=== PATIENT | male | born 1975 | race African-American/Black ===

== ENCOUNTER 2023-12-05 18:43 | Inpatient (IN) | payer OTHER ==
[2023-12-05 19:50] LABS: Specific Gravity 1.019 (1.005-1.030); Sqamous Epithelial None Seen /HPF (None Seen); Urine Bacteria None Seen /HPF (<20); Urine Bilirubin NEGATIVE (Negative); Urine Blood Negative (Negative); Urine Clarity Turbid (Clear); Urine Color Light-Yellow (Yellow); Urine Crystals Unidentified Few /HPF (None Seen); Urine Culture Reflex Order NOT NEEDED; Urine Glucose NEGATIVE (Negative); Urine Ketones NEGATIVE (Negative); Urine Microscopic Reflex YN ORDER UMIC; Urine Mucus Slight /HPF (None Seen); Urine Nitrite NEGATIVE (Negative); Urine Protein 3+ (Negative); Urine RBC <5 /HPF (None Seen); Urine Urobilinogen 1+ (Normal); Urine WBC <5 /HPF (<5); Urine pH 7.5 (5.0-7.0)
--- NOTE | 2023-12-05 19:52 | RAD REPORT ---
EXAM DESCRIPTION: CT - CTHCSPWOC - 12/05/2023 7:31 pm CLINICAL HISTORY: SYNCOPE COMPARISON: No comparisons TECHNIQUE: Axial thin cut noncontrast CT images of the head were obtained. Axial thin cut noncontrast CT images of the cervical spine were obtained. Multiplanar reformatted images were generated and reviewed. All CT scans are performed using dose optimization technique as appropriate and may include automated exposure control or mA/KV adjustment according to patient size. FINDINGS: CT HEAD WITHOUT CONTRAST: No acute hemorrhage, hydrocephalus or extra-axial collection is identified.No areas of brain edema or midline shift. The paranasal sinuses and mastoids are clear.The calvarium is intact. CT CERVICAL SPINE WITHOUT CONTRAST: No fracture or subluxation.No prevertebral soft tissues swelling is identified. IMPRESSION: No acute traumatic intracranial or cervical spine findings.
--- NOTE | 2023-12-05 19:52 | RAD REPORT ---
EXAM DESCRIPTION: Ana Single View12/05/2023 7:40 pm CLINICAL HISTORY: CHEST PAIN COMPARISON: No comparisons TECHNIQUE: Portable AP view of the chest. FINDINGS: The lungs are clear. No pneumothorax or effusion. The cardiomediastinal contours are unre markable. IMPRESSION: No acute cardiopulmonary process.
[2023-12-05 19:58] LABS: Barbiturates NEGATIVE (NEGATIVE); Benzodiazepines NEGATIVE (NEGATIVE); Cocaine NEGATIVE (NEGATIVE); METHAMPHETAM NEGATIVE (NEGATIVE); Methadone NEGATIVE (NEGATIVE); Opiates POSITIVE (NEGATIVE); Phencyclidine NEGATIVE (NEGATIVE); THC Cannibis NEGATIVE (NEGATIVE)
[2023-12-05 20:12] LABS: Absolute Eosinophils 0.1 K/uL (0-0.5); Absolute Lymphocytes (CBC) 0.9 K/uL (0.7-4.9); Basophils % 0.3 % (0-1.3); Eosinophils % 0.6 % (0-4.4); MCH 23.7 pg (27.0-35.0); Nucleated Red Blood Cells % 0.1 % (0-0); RBC Red Blood Cell Count 6.52 M/uL (4.33-5.43)
[2023-12-05 20:18] LABS: Absolute Monocytes 1.2 K/uL (0.1-1.3); Hematocrit 49.3 % (39.6-49.0); Hemoglobin 15.5 g/dL (13.6-17.9); Lymphocytes % 7.2 % (15.3-44.8); MCHC 31.4 g/dL (32.0-36.0); MCV 75.7 fL (80-100); MPV 8.1 fL (7.6-11.3); Monocytes % 10.1 % (3.3-12.3); Neutrophils % 81.8 % (41.7-73.7); Platelets 320 thou/uL (152-406); Red Cell Distribution Width 18.7 % (12.1-15.2)
[2023-12-05 20:20] LABS: PT Prothrombin Time 11.7 SECONDS (9.4-12.5); PTT, Activated Partial Thromb 31.4 SECONDS (24.3-36.9); Protime INR 1.05
[2023-12-05 20:21] LABS: SARS-CoV-2 Antigen CONTROL BLUE LINE VIS/BG OK; SARS-CoV-2 Antigen Rapid Res Negative (Negative)
[2023-12-05 20:43] LABS: Albumin 3.7 g/dL (3.4-5.0); Albumin/Globulin Ratio 0.9 (1.1-1.8); Anion Gap 5.9 mEq/L (5.0-15.0); Bilirubin Direct 0.3 mg/dL (0-0.2); Bilirubin Indirect, Calculated 0.5 mg/dL (0.2-0.8); Bilirubin Total 0.8 mg/dL (0.2-1.0); Globulin 4.2 g/dL (2.3-3.5); Magnesium 2.5 mg/dL (1.6-2.4); Potassium 3.9 mEq/L (3.5-5.1); Protein, Total 7.9 g/dL (6.4-8.2)
[2023-12-05 20:58] LABS: Troponin High Sensitivity 168.1 pg/mL (<58.9)
--- NOTE | 2023-12-05 21:05 | EDPHYS ---
Physician Documentation [facility] Name: Valeriano Mcconnell Age: 48 yrs Sex: Male : 1975 Arrival Date: 12/05/2023 Time: 18:43 Bed 13 Private MD: ED Physician Josh Byrd HPI: 12/04 19:35 This 48 yrs old Black Male presents to ER via Ambulatory with complaints of Passed Out sb4 Prior To Arrival. 19:35 The patient has experienced syncope, became unresponsive. Onset: The symptoms/episode sb4 began/occurred just prior to arrival. Context: the episode(s) was witnessed, by a significant other, occurred at home, occurred while the patient was standing, Just prior to the episode the patient experienced no apparent symptoms. Associated injury: The patient did not suffer any apparent associated injury. Associated signs and symptoms: The patient has no apparent associated signs or symptoms. Current symptoms: Currently, the patient is not experiencing any symptoms. The patient has experienced a previous episode. The patient has not experienced similar symptoms in the past. state patient was in the kitchen and she heard a crash, went to him and saw he had collapsed in the pantry and was not responding to him, eyes rolling back in the head, diaphoretic. did not lose pulse or experience incontinence. she called EMS and he vomited en route. he does not remember the events, has no complaints at this time. BP has been running high. Historical: - Allergies: 18:52 No Known Allergies; ll1 - Home Meds: 18:52 valsartan oral [Active]; ll1 - PMHx: 18:52 Hypertensive disorder; ll1 - PSHx: 18:52 None; ll1 - Immunization history:: Adult Immunizations up to date. - Infectious Disease History:: Denies. - Social history:: Smoking status: Reported history of juuling and/or vaping. ROS: 19:35 Constitutional: Negative for fever, chills, and weight loss, sb4 19:35 Neuro: Positive for syncope, 19:35 All other systems are negative, Exam: 19:35 Constitutional: This is a well developed, well nourished patient who is awake, alert, sb4 and in no acute distress. Head/Face: Normocephalic, atraumatic. Eyes: Extra-ocular motions intact. Periorbital areas with no swelling, redness, or edema. ENT: Mucous membranes moist. Cardiovascular: Regular rate and rhythm with a normal S1 and S2. Respiratory: Lungs have equal breath sounds bilaterally, clear to auscultation and percussion. No rales, rhonchi or wheezes noted. No increased work of breathing, no retractions or nasal flaring. Abdomen/GI: Soft, non-tender, no distension. Skin: Warm, dry with normal turgor. Normal color with no rashes, no lesions, and no evidence of cellulitis. MS/ Extremity: Pulses equal, no cyanosis. Neurovascular intact. Full, normal range of motion. Neuro: Awake and alert, GCS 15, oriented to person, place, time, and situation. Motor strength 5/5 in all extremities. Sensory grossly intact. Vital Signs: 18:53 BP 165 / 116; Pulse 99; Resp 18; Temp 98.1; Pulse Ox 94% on R/A; Weight 127.91 kg; ll1 Height 6 ft. 4 in. ; Pain 7/10; 20:15 BP 152 / 88 Supine; Pulse 104; Resp 14; Pulse Ox 93% on R/A; tm6 20:18 BP 152 / 88; Pulse 101; Pulse Ox 94% on R/A; Pain 0/10; tm6 20:20 BP 157 / 105 Sitting; Pulse 104; Resp 14; Pulse Ox 97% on R/A; tm6 20:25 BP 171 / 110 Standing; Pulse 106; Resp 14; Pulse Ox 95% on R/A; tm6 21:31 BP 169 / 105; Pulse 102; Pulse Ox 94% on R/A; Pain 0/10; tm6 22:52 BP 174 / 106; Pulse 111; Resp 16; Temp 98.1; Pulse Ox 96% on R/A; Pain 0/10; tm6 18:53 Body Mass Index 34.33 (127.91 kg, 193.04 cm) ll1 18:53 Pain Scale: Adult ll1 20:18 Pain Scale: Adult tm6 21:31 Pain Scale: Adult tm6 22:52 Pain Scale: Adult tm6 MDM: 19:02 Patient medically screened. sb4 21:03 Data reviewed: vital signs, nurses notes, EMS record, lab test result(s), EKG, sb4 radiologic studies, and as a result, I will admit patient. Consideration of Admission/Observation Patient was admitted/placed on observation. Care significantly affected by the following chronic conditions: Hypertension. Counseling: I had a detailed discussion with the patient and/or guardian regarding the historical points, exam findings, and any diagnostic results supporting the discharge/admit diagnosis, the presence of at least one elevated blood pressure reading (>120/80) during this emergency department visit, lab results, radiology results, the need for further work-up and treatment in the hospital. 12/04 19:11 Order name: Basic Metabolic Panel; Complete Time: 20:59 sb4 12/04 19:11 Order name: CBC with Diff; Complete Time: 20:20 sb4 12/04 19:11 Order name: Hepatic Function; Complete Time: 20:59 sb4 12/04 19:11 Order name: Magnesium; Complete Time: 20:59 sb4 12/04 19:11 Order name: Protime (+inr); Complete Time: 20:21 sb4 12/04 19:11 Order name: Ptt, Activated; Complete Time: 20:21 sb4 12/04 19:11 Order name: Troponin High Sensitivity; Complete Time: 20:59 sb4 12/04 19:11 Order name: UDS; Complete Time: 19:59 sb4 12/04 19:11 Order name: Urinalysis w/ reflexes; Complete Time: 19:51 sb4 12/04 19:11 Order name: SARS RAPID; Complete Time: 20:22 sb4 12/04 19:11 Order name: Flu; Complete Time: 20:22 sb4 12/04 22:23 Order name: Creatine Phosphokinase; Complete Time: 22:24 EDMS 12/04 19:11 Order name: CT Head C Spine; Complete Time: 19:52 sb4 12/04 19:11 Order name: Chest Single View XRAY; Complete Time: 19:54 sb4 12/04 21:28 Order name: Vent Perfusion VQ Scan EDMS 12/04 21:29 Order name: Echo with Doppler EDMS 12/04 21:29 Order name: ERT ORTHOSTATIC V/S EDMS 12/04 19:11 Order name: Cardiac monitoring; Complete Time: 19:28 sb4 12/04 19:11 Order name: EKG - Nurse/Tech; Complete Time: 19:28 sb4 12/04 19:11 Order name: IV Saline Lock; Complete Time: 20:18 sb4 08 19:11 Order name: Labs collected and sent; Complete Time: 20:18 sb4 12/04 19:11 Order name: O2 Per Protocol; Complete Time: 19:28 sb4 12/04 19:11 Order name: O2 Sat Monitoring; Complete Time: 19:28 sb4 12/04 19:11 Order name: Orthostatics; Complete Time: 20:34 sb4 EC:16 Rate is 96 beats/min. Rhythm is regular, Normal Sinus Rhythm. DC interval is normal at sb4 142 msec. QRS interval is normal at 96 msec. QT interval is normal at 338 msec. No Q waves. T waves are Normal. No ST changes noted. Clinical impression: No evidence of ischemia. Interpreted by me. Reviewed by me. Administered Medications: 21:19 Drug: NS 0.9% IV 1000 ml IV at 1 bolus Per protocol; 1000 mL bolus Route: IV; Rate: 1 tm6 bolus; Site: left hand; Disposition Summary: 12/05/23 21:04 Hospitalization Ordered Notes: Hospitalization Status: Inpatient Admission sb4 Provider: [facility] Location: Telemetry/MedSurg (Inpatient) sb4 Condition: Fair sb4 Problem: new sb4 Symptoms: are unchanged sb4 Bed/Room Type: Standard 4 Room Assignment: 405(12/05/23 21:47) km Diagnosis - Syncope, GERALDINE, NSTEMI sb4 Forms: - Medication Reconciliation Form sb4 - SBAR form sb4 - Leadership Thank You Letter sb4 Addendum: 12/09/2023 20:22 I was immediately available for consultation during this patient's visit. I did not e c2 personally see the patient or discuss the patient with the ROCKY. . Signatures: Dispatcher [employer] Regan Koch RN RN ll1 Mela Quintanilla PA-C [place] sb4 Josh Byrd MD MD ec2 Lida López kmf Lesia Mesa RN RN tm6 Corrections: (The following items were deleted from the chart) 12/04 19:23 19:12 Head Brain Wo Cont+CT.RAD.BRZ ordered. EDMS EDMS 21:47 21:04 sb4 kmf
--- NOTE | 2023-12-05 21:05 | ER ---
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 On [place] for dental extraction last week. Coronavirus screen: Client indicates they have traveled out of the [place] in the last 14 days. Client traveled to: [place]. Ebola Screen: Patient denies travel to an Ebola-affected area in the 21 days before illness onset. Initial Sepsis Screen: Does the patient meet any 2 criteria? No. Patient's initial sepsis screen is negative. Does the patient have a suspected source of infection? No. Patient's initial sepsis screen is negative. Risk Assessment: Do you want to hurt yourself or someone else? Patient reports no desire to harm self or others. Onset of symptoms was December 05, 2023. 18:53 Method Of Arrival: Ambulatory ll1 18:53 Acuity: THOMAS 3 ll1 Historical: - Allergies: 18:52 No Known Allergies; ll1 - Home Meds: 18:52 valsartan oral [Active]; ll1 - PMHx: 18:52 Hypertensive disorder; ll1 - PSHx: 18:52 None; ll1 - Immunization history:: Adult Immunizations up to date. - Infectious Disease History:: Denies. - Social history:: Smoking status: Reported history of juuling and/or vaping. Screenin:05 [facility] ED Fall Risk Assessment (Adult) History of falling in the last 3 months, tm6 including since admission Yes- physiologic fall (2 pts) Confusion or Disorientation No (0 pts) Intoxicated or Sedated No (0 pts) Impaired Gait No (0 pts) Mobility Assist Device Used No (0 pt) Altered Elimination No (0 pt) Score/Fall Risk Level 0 - 2 = Low Risk Oriented to surroundings, Maintained a safe environment, Educated pt \T\ family on fall prevention, incl call for assistance when getting out of bed. Abuse screen: Denies threats or abuse. Denies injuries from another. Nutritional screening: No deficits noted. Tuberculosis screening: No symptoms or risk factors identified. Assessment: 19:05 General: Appears in no apparent distress. Behavior is calm, cooperative. Pain: Denies tm6 pain. Neuro: Level of Consciousness is awake, alert, obeys commands, Oriented to person, place, time, situation, Reports a syncopal episode. Cardiovascular: Reports lightheadedness, syncope, Patient's skin is warm and dry. Respiratory: Airway is patent Respiratory effort is even, unlabored, Respiratory pattern is regular, symmetrical. GI: No signs and/or symptoms were reported involving the gastrointestinal system. Abdomen is round non-distended. : No signs and/or symptoms were reported regarding the genitourinary system. EENT: No signs and/or symptoms were reported regarding the EENT system. Derm: No signs and/or symptoms reported regarding the dermatologic system. Musculoskeletal: No signs and/or symptoms reported regarding the musculoskeletal system. 20:18 Reassessment: Patient appears in no apparent distress at this time. Patient and/or tm6 family updated on plan of care and expected duration. Pain level reassessed. Patient is alert, oriented x 3, equal unlabored respirations, skin warm/dry/pink. 21:32 Reassessment: Patient and/or family updated on plan of care and expected duration. Pain tm6 level reassessed. Patient is alert, oriented x 3, equal unlabored respirations, skin warm/dry/pink. 22:09 Reassessment: report faxed to [facility], confirmed by Chastity. tm6 22:52 Reassessment: Patient appears in no apparent distress at this time. Patient and/or tm6 family updated on plan of care and expected duration. Pain level reassessed. Patient is alert, oriented x 3, equal unlabored respirations, skin warm/dry/pink. Vital Signs: 18:53 BP 165 / 116; Pulse 99; Resp 18; Temp 98.1; Pulse Ox 94% on R/A; Weight 127.91 kg; ll1 Height 6 ft. 4 in. ; Pain 7/10; 20:15 BP 152 / 88 Supine; Pulse 104; Resp 14; Pulse Ox 93% on R/A; tm6 20:18 BP 152 / 88; Pulse 101; Pulse Ox 94% on R/A; Pain 0/10; tm6 20:20 BP 157 / 105 Sitting; Pulse 104; Resp 14; Pulse Ox 97% on R/A; tm6 20:25 BP 171 / 110 Standing; Pulse 106; Resp 14; Pulse Ox 95% on R/A; tm6 21:31 BP 169 / 105; Pulse 102; Pulse Ox 94% on R/A; Pain 0/10; tm6 22:52 BP 174 / 106; Pulse 111; Resp 16; Temp 98.1; Pulse Ox 96% on R/A; Pain 0/10; tm6 18:53 Body Mass Index 34.33 (127.91 kg, 193.04 cm) ll1 18:53 Pain Scale: Adult ll1 20:18 Pain Scale: Adult tm6 21:31 Pain Scale: Adult tm6 22:52 Pain Scale: Adult tm6 ED Course: 18:46 Patient arrived in ED. gm2 18:52 Arm band placed on Patient placed in an exam room, on a stretcher. ll1 18:55 Triage completed. ll1 18:59 Lesia Mesa, REANNA is Primary Nurse. tm6 19:02 Mela Quintanilla PA-C is PHCP. sb4 19:02 Josh Byrd MD is Attending Physician. sb4 19:05 Patient has correct armband on for positive identification. Bed in low position. Call tm6 light in reach. Side rails up X 1. Provided Education on: use of call sharif. Client placed on continuous cardiac and pulse oximetry monitoring. NIBP monitoring applied. monitoring specialist on. Pulse ox on. NIBP on. Door closed. Noise minimized. Pillow given. 19:17 EKG done, by ED staff, reviewed by Mela Quintanilla PA-C. oe 19:28 Flu Sent. tm6 19:28 SARS RAPID Sent. tm6 19:28 UDS Sent. tm6 19:28 Urinalysis w/ reflexes Sent. tm6 19:33 CT Head C Spine In Process Unspecified. EDMS 19:41 Chest Single View XRAY In Process Unspecified. EDMS 20:01 Inserted saline lock: 22 gauge in left hand, using aseptic technique. Blood collected. oe Flushed with 10 mL NS. 20:18 Basic Metabolic Panel Sent. tm6 20:18 CBC with Diff Sent. tm6 20:18 Hepatic Function Sent. tm6 20:18 Magnesium Sent. tm6 20:18 Protime (+inr) Sent. tm6 20:18 Ptt, Activated Sent. tm6 20:18 Troponin High Sensitivity Sent. tm6 21:03 Prince Agarwal MD is Hospitalizing Provider. sb4 22:52 No provider procedures requiring assistance completed. Patient admitted, IV remains in tm6 place. Administered Medications: 21:19 Drug: NS 0.9% IV 1000 ml IV at 1 bolus Per protocol; 1000 mL bolus Route: IV; Rate: 1 tm6 bolus; Site: left hand; Medication: 19:05 VIS not applicable for this client. tm6 Outcome: 21:04 Decision to Hospitalize by Provider. sb4 22:52 Admitted to Med/surg accompanied by tech, room 405, with chart, tm6 22:52 Condition: stable 22:52 Instructed on the need for admit, 22:53 Patient left the ED. tm6 Signatures: Dispatcher [employer] EDMS Juancho Goldsmith Lynsay, RN RN ll1 Mela Quintanilla PA-C PA-C sb4 Tara Piña 2 Lesia Mesa RN RN tm6 Corrections: (The following items were deleted from the chart) 19:17 19:16 Inserted oe kacie
[2023-12-05] MEDS ORDERED: NA CHLORIDE 0.9% 1,000 ML ONE ×2 (21:06→22:16)
[2023-12-05] MEDS: NA CHLORIDE 0.9% 1,000 ML IV SCH (21:28)
--- NOTE | 2023-12-05 21:34 | P.HP ---
Certification for Inpatient Patient admitted to: Observation With expected LOS: <2 Midnights Practitioner: I am a practitioner with admitting privileges, knowledge of patient current condition, hospital course, and medical plan of care. Services: Services provided to patient in accordance with Admission requirements found in Title 42 Section 412.3 of the Code of Federal Regulations Patient History Date of Service: 12/05/23 Reason for admission: syncope History of Present Illness: Patient is a 48 year old male with a PMH obesity and HTN. He presents to the ER accompanied by his partner for evaluation of syncope. Patient was in his pantry when he suddenly felt lightheaded and clammy. He lost syncopized briefly before spontaneously regaining consciousness. This is was witnessed by his partner who called EMS. They were advised to present to the ER. Patient had multiple tooth extractions recently, he is currently on narcotics for pain. He also took 2 shots of alcohol today to help medicate the pain. Patient arrived in the ER hypertensive with SBP > 170 MMhG. Work up included BMP which showed a CR of 2.0, and troponin of 168. Patient also has a WBC of 12.6. Physical Examination - Physical Exam General: In no apparent distress, Obese HEENT: EOMI Cardiovascular: No edema, Normal pulses, Regular rate/rhythm, Normal S1 S2 Neurological: Normal speech, Sensation intact - Studies Laboratory Data (last 24 hrs) 12/05/23 12/05/23 12/05/23 20:00 20:00 20:00 WBC 12.20 H Hgb 15.5 Hct 49.3 H Plt Count 320 PT 11.7 INR 1.05 APTT 31.4 Sodium 139 Potassium 3.9 BUN 15 Creatinine 2.03 H Glucose 80 Magnesium 2.5 H Total Bilirubin 0.8 AST 48 H ALT 60 Alkaline Phosphatase 79 Microbiology Data (last 24 hrs): 12/05/23 07:17 Nasopharnyx Influenza Type A Antigen Screen - Final 12/05/23 07:17 Nasopharnyx Influenza Type B Antigen Screen - Final Assessment and Plan - Problems (Diagnosis) (1) Syncope Current Visit: Yes Status: Acute (2) Hypertension Current Visit: Yes Status: Acute (3) GERALDINE (acute kidney injury) Current Visit: Yes Status: Acute (4) Elevated troponin Current Visit: Yes Status: Acute - Plan Assessment Patient is a 48 year old male with HTN and obesity who presents after an episode of syncope. He has elevated Cr and troponin. Trauma work up including CT head returned negative. Syncope Elevated troponin GERALDINE Leukocytosis Hypertension Obesity PLAN: Admit under observation with telemetry Start NS infusion Orthostatic vitals V/Q scan to rule out PE TTE for wall motion abnormalities Trend troponin Start nifedipine and PRN IV hydralazine for elevated BP Blood cx and procalcitonin sent Hold off antibiotics Will obtain a maxillofacial CT to rule out dental infection PT/OT before discharge - Advance Directives Does patient have a Living Will: No Does patient have a Durable POA for Healthcare: No
[2023-12-05] MEDS ORDERED: PROMETHAZINE INJ 25 MG/ML AMP IV PRN (21:40)
[2023-12-05] MEDS: NIFEDIPINE XL 30 MG TABLET PO SCH (21:41)
[2023-12-05 21:54] VITALS: BMI 34.3
[2023-12-05] MEDS ORDERED: NIFEdipine 10 MG CAP ONE (22:15)
[2023-12-06] MEDS: NA CHLORIDE 0.9% 1,000 ML IV SCH ×2 (02:57→11:13)
[2023-12-06] MEDS: ASPIRIN EC 81 MG TAB PO ONE (03:02)
[2023-12-06 06:42] LABS: Anion Gap 6.2 mEq/L (5.0-15.0); Potassium 4.2 mEq/L (3.5-5.1)
[2023-12-06 07:06] LABS: Absolute Eosinophils 0.1 K/uL (0-0.5); Absolute Lymphocytes (CBC) 1.2 K/uL (0.7-4.9); Absolute Monocytes 0.7 K/uL (0.1-1.3); Absolute Neutrophil 4.5 K/uL (1.8-8.0); Basophils % 0.6 % (0-1.3); Eosinophils % 1.6 % (0-4.4); Hematocrit 44.9 % (39.6-49.0); Hemoglobin 14.3 g/dL (13.6-17.9); Lymphocytes % 18.5 % (15.3-44.8); MCH 23.9 pg (27.0-35.0); MCHC 31.9 g/dL (32.0-36.0); MCV 74.9 fL (80-100); MPV 8.1 fL (7.6-11.3); Neutrophils % 68.3 % (41.7-73.7); Nucleated Red Blood Cells % 0.1 % (0-0); Platelets 337 thou/uL (152-406); Red Cell Distribution Width 18.4 % (12.1-15.2)
--- NOTE | 2023-12-06 07:22 | P.PN ---
Date of Service: 12/06/23 subjective No complaints of pain, Elevated troponin, n.p.o. until cardiology eval Review of Systems 10-point ROS is otherwise unremarkable Physical Examination - Vital Signs REVIEWED - Physical Exam General: Alert, Oriented x3 HEENT: Atraumatic Neck: Supple Respiratory: Clear to auscultation bilaterally equal, unlabored Cardiovascular: No edema, Regular rate/rhythm, Normal S1 S2 Gastrointestinal: Normal bowel sounds, Soft and benign Musculoskeletal: No clubbing, No swelling Integumentary: No rashes, No breakdown, No significant lesion Neurological: Normal gait, Normal speech, Normal strength at 5/5 x4 extr Assessment and Plan Syncope Elevated troponin NSTEMI Microcytic anemia GERALDINE Leukocytosis Hypertension Obesity - Plan Assessment Patient is a 48 year old male with HTN and obesity who presents after an episode of syncope. He has elevated Cr and troponin. Trauma work up including CT head returned negative. Recent tooth extraction: Reports drinking alcohol, PLAN: Cardiology consulted, keep n.p.o. Admit under observation with telemetry Maxillary CT ORDERED CT of the head neck and spine, no acute abnormality, no acute fracture Orthostatic vitals V/Q scan to rule out PE TTE for wall motion abnormalities Trend troponin Start nifedipine and PRN IV hydralazine for elevated BP Blood cx and procalcitonin sent Hold off antibiotics PT/OT before discharge Full code DVT Diet Disposition <Chiquis Champagne - Last Filed: 12/06/23 07:07> Pt seen and examined. I agree with the note by the CLOTH WORKER. Pt is resting comfortably in bed. He does not remeber what happened around the time of the syncope. His found him on the floor. His BP is elevated. Will f/u orthostatis vital sign, Echo and V/Q scan. D dimer is 0.55. Consulted cardiology for elevated troponin ( 168 -> 277 -> 268). Trauma work up is negative. Continue nifedipine and prn hydralazine. Pt needs ro see Pulm in clinic for sleep study. The reports possible sleep apnea. <Alisson Titus - Last Filed: 12/06/23 10:17>
--- NOTE | 2023-12-06 08:25 | RAD REPORT ---
EXAM DESCRIPTION: CT - CTF CLINICAL HISTORY: dental abscess COMPARISON: Chest Single View dated 12/04/2023; Chest Single View dated 08/24/2023; Chest Single View d ated 08/14/2023; Chest Single View dated 08/09/2023; Head C Spine Mpr Wo Con dated 12/04/2023; Head C Spin e Mpr Wo Con dated 08/09/2023hest Single View dated 12/04/2023; Chest Single View dated 08/24/2023; Chest Single View dated 08/14/2023; Chest Single View dated 08/09/2023; Head C Spine Mpr Wo Con dated ; Head C Spine Mpr Wo Con dated 08/09/2023No comparisons TECHNIQUE: Axial thin cut noncontrast CT images of the face were obtained with sagittal and coronal reconstruction images. All CT scans are performed using dose optimization technique as appropriate and may include automated exposure control or mA/KV adjustment according to patient size. FINDINGS: No acute facial bone fracture is seen.The mandible is intact. Extraction cavities of the mandibular bilateral second premolars, and right first molar. Extraction c avities of the bilateral maxillary second premolars as well. Small expansile collections are associat ed with the depth of the right maxillary second premolar extraction cavity, 1 of these demonstrates a small osseous lucency, either with marked thinning of the bone, or subtle communication with the rig ht maxillary sinus, see series 204, image 30 among others. Evaluation for any subperiosteal collectio ns is limited in the absence of IV contrast. The globes and orbital contents are grossly unremarkable.Complete opacification of the right maxillar y sinus with some sinus wall thickening suggesting chronic sinusitis. Focal soft tissue thickening along the right cheek laterally, see axial image 39 series 202, may repr esent a small skin vesicle/boil. IMPRESSION: Extraction cavities along the upper and lower jaws as above. Small expansile collections are associated with the depth of the right maxillary second premolar extr action cavity, with a small osseous defect associated with 1 of these collections, possibly communica ting with the right maxillary sinus cavity. Complete opacification of the right maxillary sinus, whic h may be of odontogenic nature. Evaluation for any subperiosteal collections is limited in the absence of IV contrast. 1 of these demonstrates a small defect communicating with the right maxillary
[2023-12-06] MEDS: NIFEDIPINE XL 30 MG TABLET PO SCH (09:48)
[2023-12-06] MEDS ORDERED: HEPARIN/D5W 25,000 UNIT/500 ML BAG IV SCH (11:00)
[2023-12-06] MEDS ORDERED: HEPARIN 5000 UNIT/ML 1 ML VIAL IV PRN ×2 (11:07→11:10)
[2023-12-06] MEDS: HEPARIN/D5W 25,000 UNIT/500 ML BAG IV PRN (11:30)
[2023-12-06] MEDS: HEPARIN 5000 UNIT/ML 1 ML VIAL IV SCH (11:41)
--- NOTE | 2023-12-06 12:09 | RAD REPORT ---
EXAM DESCRIPTION: NM - Vent Perfusion VQ Scan - 12/06/2023 11:46 am CLINICAL HISTORY: Syncopal episode. R/o PE COMPARISON: Chest Single View dated 12/05/2023; Head C Spine Mpr Wo Con dated 12/05/2023 TECHNIQUE: 21.8mCi Xe-133 gas inhaled and 7.1mCi Tc-MAA IV. Planar ventilation scan was performed in posterior projection after Xe-133 gas inhalation (wash-in, e quilibrium, and wash-out phases) followed by perfusion scan with Tc-MAA IV in multiple projections. Examination is correlated with recent chest radiograph. FINDINGS: Normal ventilation with appropriate wash-out and no significant air-trapping. No mismatched segmental perfusion defect. Symmetric bilateral apical defects on the anterior perfusio n views, with no correlate on other views, favored to represent superimposition of soft tissues. IMPRESSION: Very low probability of acute pulmonary embolism.
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
[2023-12-06 13:26] LABS: Absolute Eosinophils 0.1 K/uL (0-0.5); Absolute Lymphocytes (CBC) 1.4 K/uL (0.7-4.9); Absolute Monocytes 0.8 K/uL (0.1-1.3); Absolute Neutrophil 3.5 K/uL (1.8-8.0); Basophils % 0.6 % (0-1.3); Eosinophils % 2.4 % (0-4.4); Hematocrit 46.6 % (39.6-49.0); Hemoglobin 14.7 g/dL (13.6-17.9); Lymphocytes % 23.7 % (15.3-44.8); MCH 23.9 pg (27.0-35.0); MCHC 31.6 g/dL (32.0-36.0); MCV 75.7 fL (80-100); MPV 8.2 fL (7.6-11.3); Monocytes % 13.5 % (3.3-12.3); Neutrophils % 59.8 % (41.7-73.7); Nucleated Red Blood Cells % 0.1 % (0-0); Platelets 314 thou/uL (152-406); RBC Red Blood Cell Count 6.15 M/uL (4.33-5.43); Red Cell Distribution Width 18.4 % (12.1-15.2)
[2023-12-06 13:33] LABS: PT Prothrombin Time 12.6 SECONDS (9.4-12.5); PTT, Activated Partial Thromb 33.8 SECONDS (24.3-36.9); Protime INR 1.13
--- NOTE | 2023-12-06 14:46 | ECHO ---
HEIGHT: 6 ft 4 in WEIGHT: 281 lb 15.892 oz DATE OF STUDY: 12/06/[address]: Prince Jerardo Agarwal MD 2-DIMENSIONAL: YES M.MODE: YES DOPPLER: YES COLOR FLOW: YES TDS: PORTABLE: YES DEFINITY: BUBBLE STUDY: DIAGNOSIS: SYNCOPE CARDIAC HISTORY: CATHERIZATION: SURGERY: PROSTHETIC VALVE: PACEMAKER: MEASUREMENTS (cm) DIASTOLIC (NORMALS) SYSTOLIC (NORMALS) IVSd 1.4 (0.6-1.2) LA Diam 4.3 (1.9-4.0) LVEF 55% LVIDd 6.4 (3.5-5.7) LVIDs 4.7 (2.0-3.5) %FS 27% LVPWd 1.5 (0.6-1.2) Ao Diam 3.1 (2.0-3.7) 2 DIMENSIONAL ASSESSMENT: RIGHT ATRIUM: NORMAL LEFT ATRIUM: ENLARGED RIGHT VENTRICLE: NORMAL LEFT VENTRICLE: LEFT VENTRICULAR HYPERTROPHY TRICUSPID VALVE: TRACE TRICUSPID REGURGITATION MITRAL VALVE: MILD MITRAL REGURGITATION PULMONIC VALVE: TRACE PULMONIC INSUFFICIENCY AORTIC VALVE: NORMAL PERICARDIAL EFFUSION: TRIVIAL AORTIC ROOT: NORMAL LEFT VENTRICULAR WALL MOTION: NORMAL DOPPLER/COLOR FLOW: SEE BELOW COMMENTS: 1. NORMAL LEFT VENTRICULAR EJECTION FRACTION 55% WITH NORMAL WALL MOTION 2. MODERATE CONCENTRIC LEFT VENTRICULAR HYPERTROPHY 3. MODERATE DIASTOLIC DYSFUNCTION 4. LEFT ATRIAL ENLARGEMENT 5. MILD MITRAL REGURGITATION TECHNOLOGIST: BONNIE LI
--- NOTE | 2023-12-06 16:58 | EKG ---
Test Date: 2023-12-05 Test Time: 19:13:28 Court Operations Clerk: MICKEY MEASUREMENT RESULTS: Intervals: Rate: 96 MN: 142 QRSD: 96 QT: 338 QTc: 427 [place]: P: 51 MN: 142 QRS: 51 T: 119 INTERPRETIVE STATEMENTS: Normal sinus rhythm T wave abnormality, consider lateral ischemia Abnormal ECG No previous ECG available for comparison Electronically Signed On 12-06-23 16:56:45 CDT by Calixto Hook
[2023-12-06] MEDS: FLUTICASONE 50MCG NASAL SPRAY NAS SCH (20:10)
[2023-12-06] MEDS: HYDRALAZINE HCL 20 MG/ML VIAL IV PRN (20:11)
[2023-12-06] MEDS: MONTELUKAST 10 MG TAB PO SCH (20:11)
[2023-12-07 06:52] LABS: Potassium 4.3 mEq/L (3.5-5.1)
[2023-12-07 06:53] LABS: Anion Gap 5.3 mEq/L (5.0-15.0)
[2023-12-07 07:01] LABS: Absolute Eosinophils 0.1 K/uL (0-0.5); Absolute Lymphocytes (CBC) 1.5 K/uL (0.7-4.9); Absolute Monocytes 0.7 K/uL (0.1-1.3); Absolute Neutrophil 2.4 K/uL (1.8-8.0); Basophils % 0.7 % (0-1.3); Eosinophils % 3.2 % (0-4.4); Hematocrit 48.6 % (39.6-49.0); Hemoglobin 15.5 g/dL (13.6-17.9); Lymphocytes % 32.3 % (15.3-44.8); MCH 24.1 pg (27.0-35.0); MCHC 31.9 g/dL (32.0-36.0); MCV 75.6 fL (80-100); MPV 9.1 fL (7.6-11.3); Monocytes % 13.9 % (3.3-12.3); Neutrophils % 49.9 % (41.7-73.7); Nucleated Red Blood Cells % 0.1 % (0-0); Platelets 308 thou/uL (152-406); RBC Red Blood Cell Count 6.43 M/uL (4.33-5.43); Red Cell Distribution Width 18.3 % (12.1-15.2)
[2023-12-07 07:14] LABS: Troponin High Sensitivity 127.3 pg/mL (<58.9)
[2023-12-07] MEDS: AZITHROMYCIN IV 500 MG in NA CHLORIDE 0.9% 250 ML IVPB SCH (08:21)
--- NOTE | 2023-12-07 09:26 | P.PN ---
Date of Service: 12/07/23 subjective N.p.o. for heart cath today with cardiology No reported chest Review of Systems 10-point ROS is otherwise unremarkable Physical Examination - Vital Signs REVIEWED - Physical Exam General: Alert, Oriented x3 HEENT: Atraumatic Neck: Supple Respiratory: Clear to auscultation bilaterally equal, unlabored Cardiovascular: No edema, Regular rate/rhythm, Normal S1 S2 Gastrointestinal: Normal bowel sounds, Soft and benign Musculoskeletal: No clubbing, No swelling Integumentary: No rashes, No breakdown, No significant lesion Neurological: Normal gait, Normal speech, Normal strength at 5/5 x4 extr Assessment and Plan Syncope Elevated troponin NSTEMI Acute on chronic saline use Microcytic anemia GERALDINE Leukocytosis Hypertension Obesity - Plan Assessment Patient is a 48 year old male with HTN and obesity who presents after an episode of syncope. He has elevated Cr and troponin. Trauma work up including CT head returned negative. Recent tooth extraction: Reports drinking alcohol, PLAN: Cardiology consulted, keep n.p.o. Admit under observation with telemetry Maxillary CT ORDERED, chronic sinusitis, start IV azithromycin CT of the head neck and spine, no acute abnormality, no acute fracture Orthostatic vitals V/Q scan to rule out PE TTE for wall motion abnormalities Trend troponin Start nifedipine and PRN IV hydralazine for elevated BP Blood cx and procalcitonin sent Hold off antibiotics PT/OT before discharge Full code DVT heparin drip Diet cardiac Disposition pending hospital course, home independent prior
[2023-12-07] MEDS ORDERED: NA CHLORIDE 0.9% 500 ML ONE (09:34)
[2023-12-07] MEDS ORDERED: HEPA 1000U/500MLS 2,000 UNIT/1,000 ML BAG IV ONE (09:48)
[2023-12-07] MEDS ORDERED: MIDAZOLAM HCL 2 MG/2 ML INJ ONE (09:48)
[2023-12-07] MEDS ORDERED: ATROPINE SULF 1 MG/10 ML SYR IV ONE (09:48)
[2023-12-07] MEDS ORDERED: LIDOCAINE 1% 20 ML MDV ONE (09:48)
[2023-12-07] MEDS ORDERED: TICAGRELOR 90 MG TABLET PO ONE (09:49)
[2023-12-07] MEDS ORDERED: FENTANYL CITR 100 MCG/2 ML ONE (09:49)
[2023-12-07] MEDS ORDERED: HEPARIN 5000 UNIT/ML 1 ML VIAL ONE (09:49)
[2023-12-07] MEDS ORDERED: HEPARIN 10,000 UNIT/10 ML VIAL IV ONE (09:49)
[2023-12-07] MEDS ORDERED: CLOPIDOGREL 75 MG TABLET ONE (09:50)
[2023-12-07] MEDS ORDERED: ASPIRIN 325 MG TAB ONE (09:50)
--- NOTE | 2023-12-07 11:28 | P.PN ---
Subjective Date of Service: 12/07/23 Chief Complaint: syncope Subjective: No new changes, No C/O voiced, Tolerating diet, Ambulating, Improving Review of Systems 10-point ROS is otherwise unremarkable Physical Examination - Vital Signs Temperature: 97.7 F Blood Pressure: 167/100 Pulse: 103 Respirations: 18 Pulse Ox (%): 96 - Physical Exam General: Alert, In no apparent distress HEENT: Atraumatic, PERRLA, EOMI Neck: Supple, JVD not distended Respiratory: Clear to auscultation bilaterally, Normal air movement Cardiovascular: Regular rate/rhythm, Normal S1 S2 Gastrointestinal: Normal bowel sounds, No tenderness Musculoskeletal: No tenderness Integumentary: No rashes Neurological: Normal speech, Normal tone, Normal affect Lymphatics: No axilla or inguinal lymphadenopathy - Studies Laboratory Data (last 24 hrs) 12/07/23 12/07/23 12/07/23 05:47 05:47 05:47 WBC 4.70 Hgb 15.5 Hct 48.6 Plt Count 308 PT INR APTT 47.8 H Sodium 139 Potassium 4.3 BUN 12 Creatinine 1.47 H Glucose 106 Magnesium 2.0 12/06/23 12/06/23 12/06/23 23:11 19:30 19:00 WBC Hgb Hct Plt Count PT INR APTT 49.8 H Cancelled Cancelled Sodium Potassium BUN Creatinine Glucose Magnesium 12/06/23 12/06/23 12/06/23 14:58 13:16 13:16 WBC 5.90 Hgb 14.7 Hct 46.6 Plt Count 314 PT 12.6 H INR 1.13 APTT 32.2 33.8 Sodium Potassium BUN Creatinine Glucose Magnesium Medications List Reviewed: Yes Assessment And Plan - Current Problems (Diagnosis) (1) Elevated troponin Current Visit: Yes Status: Acute Plan: Coronary angiogram done and shows Normal coronaries. Normal filling pressure Troponin elevation most likely secondary to dehydration. (2) Hypertension Current Visit: Yes Status: Acute Plan: Increase Nifedipine XL to 60 mg daily (3) Syncope Current Visit: Yes Status: Acute Plan: Tele shows sinus tachycardia Echo is normal with mild LA enlargement. coronary angiogram normal.
[2023-12-07 11:59] VITALS: O2SAT 98
--- NOTE | 2023-12-07 14:26 | P.DS ---
Admission Date: 12/07/23 Discharge Date: 12/07/23 Disposition: ROUTINE DISCHARGE Discharge Condition: FAIR Reason for Admission: syncope Brief History of Present Illness: Patient is a 48 year old male with a PMH obesity and HTN. He presents to the ER accompanied by his partner for evaluation of syncope. Patient was in his pantry when he suddenly felt lightheaded and clammy. He lost syncopized briefly before spontaneously regaining consciousness. This is was witnessed by his partner who called EMS. They were advised to present to the ER. Patient had multiple tooth extractions recently, he is currently on narcotics for pain. He also took 2 shots of alcohol today to help medicate the pain. Patient arrived in the ER hypertensive with SBP > 170 MMhG. Work up included BMP which showed a CR of 2.0, and troponin of 168. Patient also has a WBC of 12.6. - Physical Exam General: Alert, Oriented x3 HEENT: Atraumatic Neck: Supple Respiratory: Clear to auscultation bilaterally equal, unlabored Cardiovascular: No edema, Regular rate/rhythm, Normal S1 S2 Gastrointestinal: Normal bowel sounds, Soft and benign Musculoskeletal: No clubbing, No swelling Integumentary: No rashes, No breakdown, No significant lesion Neurological: Normal gait, Normal speech, Normal strength at 5/5 x4 extr Hospital Course: 48 year old male with HTN and obesity who presents after an episode of syncope. He has elevated Cr and troponin. Trauma work up including CT head returned negative. Shows acute on chronic sinusitis, placed on azithromycin. Recent tooth extraction: Reports drinking alcohol,. He was admitted for hypertensive urgency, elevated troponin, placed on a heparin drip, had a abnormal echo, LEFT VENTRICULAR HYPERTROPHY. VQ scan negative for pulmonary embolism. Status post heart cath 12/07/23 shows normal coronaries, elevated troponin most likely secondary to dehydration, plan to increase nifedipine to 60 mg daily. He is to follow-up with cardiology in 1 to 2 weeks, follow-up with primary care after discharge plan to increase nifedipine to 60 mg daily. He is to follow-up with cardiology in 1 to 2 weeks, follow-up with primary care after discharge Keep blood pressure log, take blood pressure log to cardiology, primary care appointment continue home medicines as previously prescribed GOAL: Clear understanding of disease process INSTRUCTIONS: Physician Discharge Instructions: -Follow-up with PCP in 1 to 2 weeks -Please call Dr. Spicer at [phone] if any questions regarding hospital stay -Please call nursing station at [phone] if any nursing or medication questions -Return to the emergency room if symptoms worsen Diet: ADA, low sodium Activity: Fall precautions Vital Signs/Physical Exam: Temp Pulse Resp BP Pulse Ox 97.8 F 90 16 119/82 96 12/07/23 12:00 12/07/23 12:20 12/07/23 12:20 12/07/23 12:20 12/07/23 12:00 Laboratory Data at Discharge: WBC 4.70 thou/uL (4.3-10.9) 12/07/23 05:47 Hgb 15.5 g/dL (13.6-17.9) 12/07/23 05:47 Hct 48.6 % (39.6-49.0) 12/07/23 05:47 Plt Count 308 thou/uL (152-406) 12/07/23 05:47 PT 12.6 SECONDS (9.4-12.5) H 12/06/23 13:16 INR 1.13 12/06/23 13:16 APTT Cancelled 12/07/23 12:20 Sodium 139 mEq/L (136-145) 12/07/23 05:47 Potassium 4.3 mEq/L (3.5-5.1) 12/07/23 05:47 BUN 12 mg/dL (7-18) 12/07/23 05:47 Creatinine 1.47 mg/dL (0.70-1.30) H 12/07/23 05:47 Glucose 106 mg/dL (74-106) 12/07/23 05:47 Magnesium 2.0 mg/dL (1.6-2.4) 12/07/23 05:47 Total Bilirubin 0.8 mg/dL (0.2-1.0) 12/05/23 20:00 AST 48 U/L (15-37) H 12/05/23 20:00 ALT 60 U/L (16-61) 12/05/23 20:00 Alkaline Phosphatase 79 U/L (45-117) 12/05/23 20:00 Home Medications: Valsartan [Diovan] 160 mg PO DAILY 12/05/23 Azithromycin 250 mg PO DAILY 5 Days #5 tab 12/07/23 Nifedipine Xl [Procardia XL*] 60 mg PO DAILY 30 Days #30 tab 12/07/23 New Medications: Azithromycin 250 mg PO DAILY 5 Days #5 tab Nifedipine Xl [Procardia XL*] 60 mg PO DAILY 30 Days #30 tab Physician Discharge Instructions: 48 year old male with HTN and obesity who presents after an episode of syncope. He has elevated Cr and troponin. Trauma work up including CT head returned negative. Shows acute on chronic sinusitis, placed on azithromycin. Recent tooth extraction: Reports drinking alcohol,. He was admitted for hypertensive urgency, elevated troponin, placed on a heparin drip, had a abnormal echo, LEFT VENTRICULAR HYPERTROPHY. VQ scan negative for pulmonary embolism. Status post heart cath 12/07/23 shows normal coronaries, elevated troponin most likely secondary to dehydration, plan to increase nifedipine to 60 mg daily. He is to follow-up with cardiology in 1 to 2 weeks, follow-up with primary care after discharge Sinusitis azithromycin 1 tab daily for 5 days plan to increase nifedipine to 60 mg daily. He is to follow-up with cardiology in 1 to 2 weeks, follow-up with primary care after discharge Keep blood pressure log, take blood pressure log to cardiology, primary care appointment recommend 2gm low sodium diet continue home medicines as previously prescribed GOAL: Clear understanding of disease process INSTRUCTIONS: Physician Discharge Instructions: -Follow-up with PCP in 1 to 2 weeks -Please call Dr. Spicer at [phone] if any questions regarding hospital stay -Please call nursing station at [phone] if any nursing or medication questions -Return to the emergency room if symptoms worsen Diet: ADA, low sodium Activity: Fall precautions Diet: AHA Activity: Fall precautions Followup: Nasir Orellana DO, DO [Primary Care Provider] - 1-2 Weeks Time spent managing pt's care (in minutes): 45
[2023-12-07] MEDS: NIFEDIPINE XL 30 MG TABLET PO ONE (16:08)
[2023-12-07 16:10] VITALS: BP 138/86
[2023-12-07 16:23] VITALS: TEMP 98.7
--- NOTE | 2023-12-07 22:47 | OP ---
Date of Procedure: 12/07/2023 Surgeon: Blayne Fisher Procedures Performed: 1.Left heart catheterization. 2.Selective coronary angiogram. Indication For Procedure: Non-ST elevation UT. Complications: None. Estimated Blood Loss: Less than 50 cc. Anesthesia: Sedation time is 20 minutes with 1 of Versed and 25 fentanyl. Access: Right radial, closed by TR band. Description Of Procedure: After risks, benefits, and alternatives were explained to the patient, the patient agreed to proceed with procedure and signed informed consent. The patient was brought back to the catheterization lab, prepped and draped in sterile fashion. Time-out was performed. Sedation was administered. Next, right radial access was obtained. A 6-[place]i sheath was introduced without any difficulty. Then, Dora 4 catheter was advanced over J-wire to the LV cavity. LVEDP was obtain ed. Pullback did not show any gradient. Same catheter was used for selective angiogram of the left and right coronary systems. At the end of procedure, catheter was removed over a J-wire. Sheath was removed. TR band was applied. The patient was moved back to recovery in stable condition. Findings: 1.Left main, normal. 2.LAD, normal. 3.Left circ, dominant, normal. 4.RCA, normal. 5.LVEDP 10 mmHg. Assessment And Plan: 1.Normal coronaries. 2.Normal filling pressures. 3.Continue medical management for hypertension. RENETTA/MARIAM Voice ID: [id number] Report ID: [id number]
== END 2023-12-07 16:49 | disposition home or self-care (01) | DRG 287 ==
LOC: ER 18:43 → ERHOLD 21:24 → 4TH 22:50 → OBSVTOIN 12-07 09:50
PROVIDERS: ADMIT Internal Medicine; ATTEND Hospitalist
PROC: B2111ZZ Fluoroscopy of Multiple Coronary Arteries using Low Osmolar Contrast (ICD-10-PCS; principal; 2023-12-07)
PROC: 4A023N7 Measurement of Cardiac Sampling and Pressure, Left Heart, Percutaneous Approach (ICD-10-PCS; 2023-12-07)
DX: I16.0 Hypertensive urgency (principal); N17.9 Acute kidney failure, unspecified; J01.90 Acute sinusitis, unspecified; I10 Essential (primary) hypertension; D50.9 Iron deficiency anemia, unspecified; E86.0 Dehydration; D72.829 Elevated white blood cell count, unspecified; E66.9 Obesity, unspecified; R00.0 Tachycardia, unspecified; Z11.52 Encounter for screening for COVID-19; Z68.34 Body mass index [BMI] 34.0-34.9, adult; Z79.899 Other long term (current) drug therapy
CPT/HCPCS: 36415; 70450; 70486; 71045; 72125; 76937; 78582; 80048; 80076; 80307; 81001; 82550; 83735; 83880; 84145; 84484; 85025; 85049; 85379; 85610; 85730; 87040; 87804; 87811; 93005; 93306; 93458; 99152; 99285; A9540; A9558; C1893; G0378; J0360; J0461; J1644; J2001; J2250; J3010; J7030; J7040; J7050; Q9966